=== PATIENT | female | born 1940 | race Caucasian/White ===

== ENCOUNTER 2023-03-11 10:33 | Emergency (ER) | payer OTHER ==
[2023-03-11] MEDS ORDERED: DEXTROSE 50%-WATER 25 GM/50 ML DISP.SYRIN ONE (10:40)
[2023-03-11] MEDS ORDERED: SODIUM CHLORIDE 1,000 ML IV SCH (10:45)
[2023-03-11 11:02] LABS: INR 1.11 (0.83-1.09); PROTHROMBIN TIME (PATIENT) 12.9 SEC (9.7-13.0)
[2023-03-11 11:05] VITALS: BMI 25.4
[2023-03-11 11:14] LABS: CHLORIDE 109 mmol/L (98-107); POTASSIUM 4.2 mmol/L (3.5-5.1); SODIUM 142 mmol/L (136-145)
[2023-03-11 11:16] LABS: CALCIUM 9.6 mg/dL (8.5-10.1)
[2023-03-11 11:17] LABS: ALBUMIN 3.4 g/dl (3.4-5.0); ANION GAP 6 MMOL/L (8-16); CO2 27 mmol/L (21-32)
[2023-03-11 11:18] LABS: BLOOD UREA NITROGEN 27.2 mg/dL (7-18); GLUCOSE,RANDOM 139 mg/dL (74-106)
[2023-03-11 11:20] LABS: CREATININE 0.9 mg/dL (0.55-1.3); SGOT/AST 41 U/L (15-37); SGPT/ALT 25 U/L (13-61)
[2023-03-11 11:21] LABS: CHOLESTEROL 151 mg/dL (50-200); TOT PROT 7.5 g/dl (6.4-8.2)
[2023-03-11 11:22] LABS: LDL CHOLESTEROL (ONLY SJRH) 84 mg/dL (5-100)
[2023-03-11 11:23] LABS: BILIRUBIN,TOTAL 0.6 mg/dL (0.2-1)
[2023-03-11 11:24] LABS: ALK PHOS 94 U/L (45-117); HDL CHOLESTEROL 49 mg/dL (40-60)
[2023-03-11 11:29] VITALS: TEMP 98.8
[2023-03-11 11:44] LABS: EPI CELLS 11 /uL (0-25.1); HYALINE CASTS 1 /uL (0-3.1); URINE APPEARANCE TURBID; URINE BACTERIA 3751 /uL (0-1359); URINE BILIRUBIN NEGATIVE (NEGATIVE); URINE COLOR YELLOW; URINE GLUCOSE (UA) NEGATIVE (NEGATIVE); URINE KETONE NEGATIVE (NEGATIVE); URINE LEUK ESTERASE 3+ (NEGATIVE); URINE NITRITE POSITIVE (NEGATIVE); URINE PROTEIN 1+ (NEGATIVE); URINE RBC 26 /uL (0-23.9); URINE UROBILINOGEN 0.2 mg/dL (0.2-1.0); URINE WBC 532 /uL (0-25.8)
[2023-03-11 11:54] LABS: BASO % 0.9 % (0-2.0); EOS % 5.1 % (0-4.5); HEMATOCRIT 36.2 % (32.4-45.2); HEMOGLOBIN 12.5 GM/dL (10.7-15.3); MCH 32.6 pg (25.7-33.7); MCHC 34.5 g/dl (32.0-36.0); MEAN CELL VOLUME 94.4 fl (80-96); MEAN PLT VOLUME 9.7 fl (7.5-11.1); MONO % 7.9 % (3.8-10.2); NEUT % 68.1 % (42.8-82.8); PLATELET COUNT 182 10^3/uL (134-434); RBC 3.83 M/mm3 (3.60-5.2); RDW 14.1 % (11.6-15.6); WHITE BLOOD COUNT 9.8 K/mm3 (4.0-10.0)
[2023-03-11] MEDS ORDERED: CEFTRIAXONE 1,000 MG in DEXTROSE 5%-WATER - 50 ML IVPB ONE (12:20)
[2023-03-11] MEDS ORDERED: CEFTRIAXONE 1 GM/50 ML BAG ONE (12:24)
[2023-03-11 13:39] VITALS: BP 178/71; PULSE 71; RESP 16
== END 2023-03-11 13:54 | disposition short-term general hospital (02) ==
LOC: JER 10:33
DX: I63.511 Cerebral infarction due to unspecified occlusion or stenosis of right middle cerebral artery (principal); R41.82 Altered mental status, unspecified; Z20.822 Contact with and (suspected) exposure to COVID-19
CPT/HCPCS: 36415; 70450-TC; 70496-TC; 70498-TC; 80053; 80061; 81003; 82550; 82962; 83036; 84484; 85025; 85610; 85730; 86850; 86900; 86901; 93005; 93010; 99285-25; C9803-CS; Q9967; U0003; U0005